=== PATIENT | female | born 1955 | race Caucasian/White ===

== ENCOUNTER → 2016-11-21 | Outpatient (CLI) | payer MEDICARE, MEDICAID ==
[~2016-11-21] MED LIST: ACET-2178 PO; ASPI-1035 PO; DULO60CA44 PO; GABA-290 PO; IPRA3AMP9 INH; QUET100T PO; RISP0.5T PO; ZOLP6.252 PO
== END | disposition home or self-care (01) ==
LOC: CT 10:32
DX: G31.9 Degenerative disease of nervous system, unspecified (principal)
CPT/HCPCS: 70486

== ENCOUNTER 2018-03-24 18:34 | Inpatient (IN) | payer MEDICARE, MEDICAID ==
[~2018-03-24] VITALS: Ht 162.6 cm; Wt 49.0 kg
[~2018-03-24 18:34] MED LIST changes: -ACET-2178 PO; +ACET250T3 PO; -ASPI-1035 PO; +ASPI-1159 PO; +DOCU100T PO; -DULO60CA44 PO; +DUONEB3 ML INH; +ESCI10TA PO; +FLUT1AER IH; -IPRA3AMP9 INH; +MELA3TAB10 PO; -RISP0.5T PO; +RISP05 PO
[2018-03-24] MEDS ORDERED: DILTIAZEM HCL 5MG/ML 5ML VIAL IV ONE (19:00)
[2018-03-24] MEDS ORDERED: DILTIAZEM HCL 90MG TABLET PO ONE (19:15)
[2018-03-24 19:30] LABS: BASOPHILS % 0.9 % (0.0-2.0); EOSINOPHILS % 0.5 % (0.0-5.0); HEMATOCRIT. 39.5 % (36.0-48.0); HEMOGLOBIN. 12.7 g/dL (12.0-16.0); MEAN CORPUSCULAR VOLUME 99.6 fL (81.0-99.0); MEAN PLATELET VOLUME 9.8 fl (7.4-10.4); MONOCYTES % 11.7 % (2.0-8.0); NEUTROPHILS % 61.9 % (40.0-76.0); PLATELET 265 x1000/uL (130-400); RED BLOOD CELL COUNT 3.96 mill/uL (4.2-5.4); RED CELL DISTRIBUTION WIDTH 17.8 % (11.6-14.6)
[2018-03-24 19:34] LABS: CHLORIDE 97 mEq/L (98-107)
[2018-03-24 19:40] LABS: PHOSPHORUS 4.2 mg/dL (2.5-4.9)
[2018-03-24] MEDS ORDERED: IOHEXOL-300 100 ML BOTTLE ONE (23:30)
[2018-03-25] VITALS (10 sets, daily range): BP systolic 97–135; BP diastolic 57–91
[2018-03-25] MEDS ORDERED: DIGOXIN 500MCG/2ML AMP IV ONE (09:00)
[2018-03-25] MEDS: ENOXAPARIN 40MG/0.4ML SYR SUBCUT SCH ×2 (09:00→10:00)
[2018-03-25] MEDS: HYDROCODONE/ACETAMINOPHEN 5/325MG TABLET PO PRN ×3 (09:11→19:45)
[2018-03-25 09:39] LABS: T4 FREE 1.32 ng/dL (0.76-1.46)
[2018-03-25] MEDS: ASPIRIN 81MG TABLET PO SCH (11:05)
[2018-03-25] MEDS: ENOXAPARIN 60MG/0.6ML SYR SUBCUT SCH (12:32)
[2018-03-25] MEDS ORDERED: FUROSEMIDE 40MG/4ML VIAL IVP NR (15:45)
[2018-03-25 18:49] LABS: CREATINE KINASE MB FRACTION 8.8 ng/mL (0.5-3.6)
[2018-03-26] VITALS (10 sets, daily range): BP systolic 110–122; BP diastolic 41–82
[2018-03-26] MEDS: ENOXAPARIN 60MG/0.6ML SYR SUBCUT SCH ×3 (01:00→21:09)
[2018-03-26] MEDS: HYDROCODONE/ACETAMINOPHEN 5/325MG TABLET PO PRN ×2 (01:00→09:08)
[2018-03-26 05:08] LABS: CREATINE KINASE MB FRACTION 8.8 ng/mL (0.5-3.6)
[2018-03-26 07:02] LABS: INR 1.9; PROTHROMBIN TIME 18.6 sec (9.1-11.1)
[2018-03-26 07:03] LABS: BASOPHILS % 0.7 % (0.0-2.0); EOSINOPHILS % 3.3 % (0.0-5.0); HEMATOCRIT. 35.4 % (36.0-48.0); HEMOGLOBIN. 11.3 g/dL (12.0-16.0); MEAN CORPUSCULAR HEMOGLOBIN 31.6 pg (28.0-32.0); MEAN CORPUSCULAR VOLUME 98.7 fL (81.0-99.0); MONOCYTES % 8.6 % (2.0-8.0); NEUTROPHILS % 57.4 % (40.0-76.0); PLATELET 192 x1000/uL (130-400); RED BLOOD CELL COUNT 3.59 mill/uL (4.2-5.4)
[2018-03-26 07:15] LABS: CHLORIDE 94 mEq/L (98-107)
[2018-03-26 07:26] LABS: CREATINE KINASE 145 IU/L (26-192)
[2018-03-26 07:29] LABS: CREATINE KINASE MB FRACTION 7.5 ng/mL (0.5-3.6)
[2018-03-26] MEDS: ASPIRIN 81MG TABLET PO SCH (09:08)
[2018-03-27] VITALS (18 sets, daily range): BP systolic 94–150; BP diastolic 29–97
[2018-03-27 06:54] LABS: INR 1.5; PROTHROMBIN TIME 14.8 sec (9.1-11.1)
[2018-03-27 07:00] LABS: BASOPHILS % 1.2 % (0.0-2.0); EOSINOPHILS % 4.5 % (0.0-5.0); HEMATOCRIT. 36.1 % (36.0-48.0); HEMOGLOBIN. 11.9 g/dL (12.0-16.0); LYMPHOCYTES % 22.8 % (20.0-50.0); MEAN CORPUSCULAR HEMOGLOBIN 32.5 pg (28.0-32.0); MEAN CORPUSCULAR VOLUME 98.3 fL (81.0-99.0); MEAN PLATELET VOLUME 8.4 fl (7.4-10.4); MONOCYTES % 10.4 % (2.0-8.0); NEUTROPHILS % 61.1 % (40.0-76.0); PLATELET 181 x1000/uL (130-400); RED BLOOD CELL COUNT 3.67 mill/uL (4.2-5.4); RED CELL DISTRIBUTION WIDTH 16.8 % (11.6-14.6)
[2018-03-27 07:17] LABS: CHLORIDE 100 mEq/L (98-107)
[2018-03-27] MEDS: ASPIRIN 81MG TABLET PO SCH ×3 (09:00→11:32)
[2018-03-27] MEDS ORDERED: DIGOXIN 500MCG/2ML AMP IV NR (09:00)
[2018-03-27] MEDS: ENOXAPARIN 60MG/0.6ML SYR SUBCUT SCH (09:12)
[2018-03-27] MEDS ORDERED: LORAZEPAM 2MG/ML CPJ IM PRN (09:15)
[2018-03-27] MEDS: LORAZEPAM 2MG/ML CPJ IV PRN ×3 (09:20→22:34)
[2018-03-27] MEDS: HYDROCODONE/ACETAMINOPHEN 5/325MG TABLET PO PRN (11:31)
[2018-03-27] MEDS ORDERED: AMIODARONE HCL 900 MG in DEXT 5% WATER 482 ML IV SCH (12:00)
[2018-03-27] MEDS: RIVAROXABAN 15 MG TABLET PO SCH (16:04)
[2018-03-28] VITALS (20 sets, daily range): BP systolic 100–146; BP diastolic 55–85
[2018-03-28] MEDS: ASPIRIN 81MG TABLET PO SCH (08:45)
[2018-03-28] MEDS: RIVAROXABAN 15 MG TABLET PO SCH ×2 (08:45→17:41)
[2018-03-28] MEDS: LORAZEPAM 2MG/ML CPJ IV PRN (10:57)
[2018-03-28] MEDS: QUETIAPINE FUMARATE 25MG TABLET PO SCH ×2 (17:42→20:26)
[2018-03-28] MEDS: AMIODARONE HCL 200 MG TABLET PO SCH (18:32)
[2018-03-29 04:00] VITALS: BP 102/81
[2018-03-29 08:00] VITALS: BP 91/67
[2018-03-29] MEDS: ASPIRIN 81MG TABLET PO SCH (09:16)
[2018-03-29] MEDS: QUETIAPINE FUMARATE 25MG TABLET PO SCH ×2 (09:16→21:06)
[2018-03-29] MEDS: AMIODARONE HCL 200 MG TABLET PO SCH (09:16)
[2018-03-29] MEDS: RIVAROXABAN 15 MG TABLET PO SCH ×2 (09:16→18:10)
[2018-03-29 12:00] VITALS: BP 96/68
[2018-03-29 12:13] LABS: HEMOGLOBIN 11.6 g/dL (12.0-16.0); MEAN CORPUSCULAR HEMOGLOBIN 31.6 pg (28.0-32.0); MEAN CORPUSCULAR VOLUME 98.4 fL (81.0-99.0); PLATELET 149 x1000/uL (130-400); RED BLOOD CELL COUNT 3.66 mill/uL (4.2-5.4)
[2018-03-29 12:59] LABS: CHLORIDE 105 mEq/L (98-107)
[2018-03-29 16:00] VITALS: BP 106/76
[2018-03-29 17:48] LABS: AMMONIA 34 uMol/L (<32)
[2018-03-29] MEDS ORDERED: DEXT 5%/0.45% NACL 500ML 500 ML IV ONE (19:00)
[2018-03-29 20:00] VITALS: BP 124/82
[2018-03-30] VITALS (7 sets, daily range): BP systolic 109–126; BP diastolic 76–98
[2018-03-30] MEDS: ASPIRIN 81MG TABLET PO SCH (08:32)
[2018-03-30] MEDS: AMIODARONE HCL 200 MG TABLET PO SCH (08:32)
[2018-03-30] MEDS: QUETIAPINE FUMARATE 25MG TABLET PO SCH ×2 (08:32→20:45)
[2018-03-30] MEDS: RIVAROXABAN 15 MG TABLET PO SCH ×2 (08:32→17:49)
[2018-03-30] MEDS ORDERED: DILTIAZEM HCL 90MG CAPSULE SR 12HR PO SCH (15:30)
[2018-03-30] MEDS ORDERED: DILTIAZEM HCL 120MG CAPSULE CD 24HR PO SCH (15:45)
[2018-03-30] MEDS: DILTIAZEM HCL 60MG TABLET PO SCH ×2 (15:58→20:45)
[2018-03-31] VITALS: BP 123/70
[2018-03-31 04:00] VITALS: BP 111/81
[2018-03-31] MEDS: DILTIAZEM HCL 60MG TABLET PO SCH ×2 (05:42)
[2018-03-31 08:00] VITALS: BP 110/86
[2018-03-31] MEDS: ASPIRIN 81MG TABLET PO SCH (09:12)
[2018-03-31] MEDS: QUETIAPINE FUMARATE 25MG TABLET PO SCH ×2 (09:12→20:56)
[2018-03-31] MEDS: AMIODARONE HCL 200 MG TABLET PO SCH (09:12)
[2018-03-31] MEDS: RIVAROXABAN 15 MG TABLET PO SCH ×2 (09:12→17:29)
[2018-03-31] MEDS: LORAZEPAM 2MG/ML CPJ IV PRN (10:25)
[2018-03-31] MEDS ORDERED: DILTIAZEM HCL 300MG CAPSULE SR 24HR PO SCH (11:00)
[2018-03-31 12:00] VITALS: BP 115/80
[2018-03-31] MEDS ORDERED: DILTIAZEM HCL 60MG TABLET PO SCH (12:15)
[2018-03-31] MEDS: DILTIAZEM HCL 90MG TABLET PO SCH ×2 (12:50→17:30)
[2018-03-31] MEDS: LEVOFLOXACIN 500MG PREMIX 100 ML IV SCH (14:10)
[2018-03-31 16:00] VITALS: BP 109/56
[2018-03-31 20:00] VITALS: BP 130/88
[2018-03-31] MEDS ORDERED: MAGNESIUM 1 G PREMIX 100 ML IV NR (21:00)
[2018-04-01] VITALS: BP 124/86
[2018-04-01] MEDS: DILTIAZEM HCL 90MG TABLET PO SCH ×4 (00:27→17:44)
[2018-04-01 04:00] VITALS: BP 116/82
[2018-04-01 08:11] VITALS: BP 102/67
[2018-04-01] MEDS: QUETIAPINE FUMARATE 25MG TABLET PO SCH (09:00)
[2018-04-01] MEDS: AMIODARONE HCL 200 MG TABLET PO SCH (09:00)
[2018-04-01] MEDS: RIVAROXABAN 15 MG TABLET PO SCH ×2 (09:00→17:44)
[2018-04-01] MEDS ORDERED: IPRATROPIUM/ALBUTEROL 0.5-3(2.5)MG/3ML NEB HHN PRN (10:45)
[2018-04-01] MEDS ORDERED: FUROSEMIDE 40MG/4ML VIAL IVP NR (10:45)
[2018-04-01] MEDS: LEVOFLOXACIN 500MG PREMIX 100 ML IV SCH (10:47)
[2018-04-01] MEDS: IPRATROPIUM/ALBUTEROL 0.5-3(2.5)MG/3ML NEB HHN SCH ×2 (11:05→21:34)
[2018-04-01] MEDS ORDERED: ACETAMINOPHEN 325MG TABLET PO PRN (11:15)
[2018-04-01] MEDS ORDERED: HYDROCODONE/ACETAMINOPHEN 5/325MG TABLET PO PRN (11:15)
[2018-04-01 11:56] VITALS: BP 133/94
[2018-04-01] MEDS ORDERED: IPRATROPIUM/ALBUTEROL 0.5-3(2.5)MG/3ML NEB HHN SCH (12:00)
[2018-04-01 15:55] VITALS: BP 112/88
[2018-04-01] MEDS ORDERED: LEVO500T2 PO (17:00)
[2018-04-01 20:00] VITALS: BP 127/81
== END 2018-04-01 22:25 | DRG 175 ==
LOC: ER 18:34 → 3WST 20:58 → EDBEDREQ 21:04 → EDBEDREQTM 21:04 → EDBEDREQSVC 21:04 → ENRESERV 22:03 → 3WST 03-25 00:08 → 7WST 03-28 23:25
PROVIDERS: ADMIT Internal Medicine; ATTEND Internal Medicine
DX: I26.99 Other pulmonary embolism without acute cor pulmonale (principal); J96.00 Acute respiratory failure, unspecified whether with hypoxia or hypercapnia; I50.23 Acute on chronic systolic (congestive) heart failure; D68.59 Other primary thrombophilia; I11.0 Hypertensive heart disease with heart failure; J44.9 Chronic obstructive pulmonary disease, unspecified; F32.9 Major depressive disorder, single episode, unspecified; F20.9 Schizophrenia, unspecified; E11.51 Type 2 diabetes mellitus with diabetic peripheral angiopathy without gangrene; I36.1 Nonrheumatic tricuspid (valve) insufficiency; R74.0 Nonspecific elevation of levels of transaminase and lactic acid dehydrogenase [LDH]; R79.89 Other specified abnormal findings of blood chemistry; I48.0 Paroxysmal atrial fibrillation; Z79.82 Long term (current) use of aspirin; Z79.899 Other long term (current) drug therapy; Z88.0 Allergy status to penicillin
CPT/HCPCS: 36415; 71045; 74018; 74177; 80048; 80053; 80061; 82140; 82247; 82550; 82553; 83036; 83605; 83690; 83735; 83880; 84075; 84100; 84439; 84443; 84450; 84460; 84484; 85025; 85027; 85379; 85610; 92610; 93005; 93306; 93923; 93970; 94640; 96374; 99285; A6261; C1893; J0282; J1160; J1650; J1940; J1956; J2060; J3475; J3490; J7040; J7060; J7620; Q9967

== ENCOUNTER 2018-04-04 18:44 | Inpatient (IN) | payer MEDICARE, MEDICAID ==
[~2018-04-04] VITALS: Ht 162.6 cm; Wt 69.4 kg
[~2018-04-04 18:44] MED LIST changes: +ETOMIDATE 2MG/ML 10ML VIAL IV ONE; +LEVO500T2 PO; +VECURONIUM BROMIDE 10 MG/VIAL IV ONE
[2018-04-04] MEDS ORDERED: SODIUM CHLORIDE 0.9% 1000ML BAG (SEPSIS BOLUS) IV ONE (19:00)
[2018-04-04] MEDS ORDERED: VERAPAMIL HCL 2.5 MG/1 ML 2ML VIAL IV ONE (19:15)
[2018-04-04] MEDS ORDERED: VECURONIUM BROMIDE 10 MG/VIAL IV ONE (19:15)
[2018-04-04] MEDS ORDERED: LEVOFLOXACIN 500MG PREMIX 100 ML IV ONE (19:15)
[2018-04-04] MEDS ORDERED: ETOMIDATE 2MG/ML 10ML VIAL IV ONE (19:15)
[2018-04-04] MEDS ORDERED: MIDAZOLAM HCL 50 MG in DEXTROSE 5% WATER 40 ML IV ONE (19:15)
[2018-04-04] MEDS ORDERED: MIDAZOLAM HCL 50 MG in DEXTROSE 5% WATER 40 ML IV NR (19:45)
[2018-04-04 20:21] LABS: BASOPHILS % 0.8 % (0.0-2.0); EOSINOPHILS % 2.5 % (0.0-5.0); HEMOGLOBIN. 11.4 g/dL (12.0-16.0); LYMPHOCYTES % 16.3 % (20.0-50.0); MEAN CORPUSCULAR HEMOGLOBIN 31.7 pg (28.0-32.0); MEAN CORPUSCULAR VOLUME 102.7 fL (81.0-99.0); MONOCYTES % 6.1 % (2.0-8.0); NEUTROPHILS % 74.3 % (40.0-76.0); PLATELET 152 x1000/uL (130-400); RED CELL DISTRIBUTION WIDTH 17.2 % (11.6-14.6)
[2018-04-04 20:21] LABS: CLARITY URINE CLOUDY (CLEAR); COLOR URINE DARK YELLOW (YELLOW); KETONES URINE TRACE (NEGATIVE); LEUKOCYTE ESTERASE URINE 1+ (NEGATIVE); NITRITE URINE NEGATIVE (NEGATIVE); OCCULT BLOOD URINE NEGATIVE (NEGATIVE); PH URINE 6.5 (4.5-8.0); PROTEIN URINE 1+ (NEGATIVE); SPECIFIC GRAVITY URINE 1.021 (1.005-1.030)
[2018-04-04 20:30] LABS: CHLORIDE 106 mEq/L (98-107)
[2018-04-04 20:33] LABS: INR 1.3; PARTIAL THROMBOPLASTIN TIME 24.3 sec (23.4-31.0); PROTHROMBIN TIME 12.7 sec (9.1-11.1)
[2018-04-04] MEDS ORDERED: CLINDAMYCIN 600 MG in DEXTROSE 5% WATER 50 ML IV ONE (20:45)
[2018-04-04 21:00] VITALS: BP 113/69
[2018-04-04 21:05] LABS: BG CARBOXYHEMOGLOBIN 0.8 % (0.5-1.5); BG FRACTION INSPIRED OXYGEN 100; BG HCO3 ACT 27.1 mmol/L (22.0-26.0); BG METHEMOGLOBIN 0.3 % (0.0-1.5); BG OXYHEMOGLOBIN 98.9 % (94.0-97.0); BG PCO2 55.3 mmHg (35.0-45.0); BG PH 7.308 (7.350-7.450); BG PO2 401.5 mmHg (75.0-100.0); BG SAMPLE SITE RIGHT BRACHIAL; BG TIDAL VOLUME(mL) 400 mL; BG TOTAL HEMOGLOBIN 12.4 g/dL (12.0-18.0); BG VENT MODE VENT - A/C; BG VENT RATE 14 set
[2018-04-04 22:48] VITALS: BP 113/75
[2018-04-04 23:55] VITALS: BP 71/25
[2018-04-04 23:56] VITALS: BP 99/71
[2018-04-05] VITALS (77 sets, daily range): BP systolic 71–148; BP diastolic 25–104
[2018-04-05] MEDS ORDERED: VASOPRESSIN 10 UNIT in SODIUM CHLORIDE 0.9% 99.5 ML IV PRN ×2
[2018-04-05] MEDS ORDERED: CLINDAMYCIN 900 MG in DEXTROSE 5% WATER 50 ML IV SCH (02:00)
[2018-04-05] MEDS ORDERED: SODIUM CHLORIDE 10% FOR INH 15ML VIAL NEB INH SCH (02:00)
[2018-04-05] MEDS ORDERED: NOREPINEPHRINE 4 MG in DEXT 5% WATER 246 ML IV PRN (04:00)
[2018-04-05] MEDS ORDERED: DEXT 5%/0.45% NACL KCL 20MEQ/L 1,000 ML IV SCH ×2 (05:30→06:00)
[2018-04-05] MEDS ORDERED: NOREPINEPHRINE 8 MG in DEXT 5% WATER 242 ML IV PRN (08:00)
[2018-04-05] MEDS ORDERED: IPRATROPIUM/ALBUTEROL 0.5-3(2.5)MG/3ML NEB HHN PRN (09:00)
[2018-04-05 09:43] LABS: BASOPHILS % 0.7 % (0.0-2.0); EOSINOPHILS % 0.8 % (0.0-5.0); HEMATOCRIT. 37.9 % (36.0-48.0); HEMOGLOBIN. 11.9 g/dL (12.0-16.0); LYMPHOCYTES % 10.8 % (20.0-50.0); MEAN CORPUSCULAR HEMOGLOBIN 31.2 pg (28.0-32.0); MEAN CORPUSCULAR VOLUME 99.5 fL (81.0-99.0); MEAN PLATELET VOLUME 8.9 fl (7.4-10.4); MONOCYTES % 7.4 % (2.0-8.0); NEUTROPHILS % 80.3 % (40.0-76.0); PLATELET 183 x1000/uL (130-400); RED BLOOD CELL COUNT 3.81 mill/uL (4.2-5.4); RED CELL DISTRIBUTION WIDTH 16.4 % (11.6-14.6)
[2018-04-05 09:56] LABS: CHLORIDE 111 mEq/L (98-107)
[2018-04-05] MEDS ORDERED: DIGOXIN 500MCG/2ML AMP IV NR (10:00)
[2018-04-05] MEDS ORDERED: HEPARIN 100 UNITS/1 ML VIAL IVF PRN (11:00)
[2018-04-05] MEDS: FUROSEMIDE 40MG/4ML VIAL IVP SCH ×2 (11:31→18:31)
[2018-04-05] MEDS: PANTOPRAZOLE SODIUM 40 MG/VIAL IV SCH (11:31)
[2018-04-05] MEDS: ENOXAPARIN 60MG/0.6ML SYR SUBCUT SCH ×2 (11:32→22:34)
[2018-04-05] MEDS ORDERED: IPRATROPIUM/ALBUTEROL 0.5-3(2.5)MG/3ML NEB HHN SCH (12:00)
[2018-04-05] MEDS ORDERED: PHENYLEPHRINE 20 MG in DEXT 5% WATER 248 ML IV PRN (13:00)
[2018-04-05] MEDS ORDERED: MAGNESIUM 4 G PREMIX 100 ML IV NR (13:30)
[2018-04-05] MEDS: IPRATROPIUM BROMIDE (0.02%) 0.5MG/2.5ML NEB HHN SCH ×2 (13:37→20:43)
[2018-04-05] MEDS: METRONIDAZOLE 500 MG PREMIX 100 ML IV SCH ×2 (13:41→22:35)
[2018-04-05 13:48] LABS: BG BASE EXCESS 4.6 mmol/L (-2.0-2.0); BG CARBOXYHEMOGLOBIN 1.1 % (0.5-1.5); BG DEOXYHEMOGLOBIN 3.3 % (0.0-5.0); BG FRACTION INSPIRED OXYGEN 45; BG HCO3 ACT 28.9 mmol/L (22.0-26.0); BG METHEMOGLOBIN 0.4 % (0.0-1.5); BG OXYGEN SATURATION 96.6 % (92.0-98.5); BG OXYHEMOGLOBIN 95.2 % (94.0-97.0); BG PCO2 41.5 mmHg (35.0-45.0); BG PO2 81.2 mmHg (75.0-100.0); BG SAMPLE SITE LEFT RADIAL; BG TIDAL VOLUME(mL) 450 mL; BG VENT MODE VENT - A/C; BG VENT RATE 14 set
[2018-04-05] MEDS: MIDAZOLAM HCL 50 MG in DEXTROSE 5% WATER 40 ML IV PRN (18:33)
[2018-04-05] MEDS: BUDESONIDE 0.5MG/2ML NEB HHN SCH (20:43)
[2018-04-05] MEDS: LEVOFLOXACIN 500MG PREMIX 100 ML IV SCH (22:34)
[2018-04-06] VITALS (40 sets, daily range): BP systolic 93–123; BP diastolic 52–92
[2018-04-06] MEDS: IPRATROPIUM BROMIDE (0.02%) 0.5MG/2.5ML NEB HHN SCH ×5 (01:54→20:05)
[2018-04-06 05:40] LABS: BASOPHILS % 0.9 % (0.0-2.0); EOSINOPHILS % 0.7 % (0.0-5.0); HEMATOCRIT. 33.9 % (36.0-48.0); LYMPHOCYTES % 18.2 % (20.0-50.0); MEAN CORPUSCULAR HEMOGLOBIN 31.4 pg (28.0-32.0); MEAN CORPUSCULAR VOLUME 96.6 fL (81.0-99.0); MEAN PLATELET VOLUME 8.2 fl (7.4-10.4); MONOCYTES % 6.3 % (2.0-8.0); NEUTROPHILS % 73.9 % (40.0-76.0); PLATELET 164 x1000/uL (130-400); RED BLOOD CELL COUNT 3.51 mill/uL (4.2-5.4); RED CELL DISTRIBUTION WIDTH 15.8 % (11.6-14.6)
[2018-04-06] MEDS: METRONIDAZOLE 500 MG PREMIX 100 ML IV SCH ×3 (06:06→23:37)
[2018-04-06 06:26] LABS: CHLORIDE 104 mEq/L (98-107)
[2018-04-06 06:32] LABS: PHOSPHORUS 1.1 mg/dL (2.5-4.9)
[2018-04-06] MEDS: MIDAZOLAM HCL 50 MG in DEXTROSE 5% WATER 40 ML IV PRN ×2 (07:30→09:26)
[2018-04-06] MEDS: BUDESONIDE 0.5MG/2ML NEB HHN SCH ×2 (08:41→20:05)
[2018-04-06] MEDS: FUROSEMIDE 40MG/4ML VIAL IVP SCH ×2 (09:24→18:40)
[2018-04-06] MEDS: PANTOPRAZOLE SODIUM 40 MG/VIAL IV SCH (09:24)
[2018-04-06] MEDS: ENOXAPARIN 60MG/0.6ML SYR SUBCUT SCH ×2 (09:25→22:19)
[2018-04-06 11:21] LABS: BG BASE EXCESS 7.5 mmol/L (-2.0-2.0); BG CARBOXYHEMOGLOBIN 1.2 % (0.5-1.5); BG DEOXYHEMOGLOBIN 2.2 % (0.0-5.0); BG FRACTION INSPIRED OXYGEN 45; BG HCO3 ACT 30.5 mmol/L (22.0-26.0); BG METHEMOGLOBIN 0.2 % (0.0-1.5); BG OXYGEN SATURATION 97.8 % (92.0-98.5); BG OXYHEMOGLOBIN 96.4 % (94.0-97.0); BG PCO2 37.3 mmHg (35.0-45.0); BG PH 7.531 (7.350-7.450); BG PO2 93.6 mmHg (75.0-100.0); BG SAMPLE SITE RIGHT FEMORAL; BG TIDAL VOLUME(mL) 450 mL; BG TOTAL HEMOGLOBIN 12.6 g/dL (12.0-18.0); BG VENT MODE VENT - A/C; BG VENT RATE 14 set
[2018-04-06] MEDS ORDERED: POTASSIUM PHOS,M-BASIC-D-BASIC 30 MMOL in DEXT 5% WATER 500 ML IV NR (11:30)
[2018-04-06] MEDS: MORPHINE SULFATE 4 MG/ML CPJ (NOT FOR IM USE) IV PRN (15:08)
[2018-04-06] MEDS: LEVOFLOXACIN 500MG PREMIX 100 ML IV SCH (22:20)
[2018-04-07] VITALS (43 sets, daily range): BP systolic 85–125; BP diastolic 54–81
[2018-04-07] MEDS: MORPHINE SULFATE 4 MG/ML CPJ (NOT FOR IM USE) IV PRN (00:23)
[2018-04-07] MEDS: IPRATROPIUM BROMIDE (0.02%) 0.5MG/2.5ML NEB HHN SCH ×3 (01:35→20:11)
[2018-04-07 05:39] LABS: BASOPHILS % 0.4 % (0.0-2.0); EOSINOPHILS % 1.2 % (0.0-5.0); HEMATOCRIT. 34.8 % (36.0-48.0); HEMOGLOBIN. 11.3 g/dL (12.0-16.0); LYMPHOCYTES % 16.8 % (20.0-50.0); MEAN CORPUSCULAR HEMOGLOBIN 31.3 pg (28.0-32.0); MEAN CORPUSCULAR VOLUME 96.4 fL (81.0-99.0); MEAN PLATELET VOLUME 8.7 fl (7.4-10.4); MONOCYTES % 6.2 % (2.0-8.0); NEUTROPHILS % 75.4 % (40.0-76.0); PLATELET 157 x1000/uL (130-400); RED BLOOD CELL COUNT 3.61 mill/uL (4.2-5.4); RED CELL DISTRIBUTION WIDTH 15.5 % (11.6-14.6)
[2018-04-07 06:00] LABS: CHLORIDE 99 mEq/L (98-107)
[2018-04-07] MEDS: METRONIDAZOLE 500 MG PREMIX 100 ML IV SCH ×3 (06:53→21:34)
[2018-04-07 07:49] LABS: PHOSPHORUS 1.5 mg/dL (2.5-4.9)
[2018-04-07] MEDS: BUDESONIDE 0.5MG/2ML NEB HHN SCH ×2 (08:44→20:10)
[2018-04-07] MEDS ORDERED: POTASSIUM CHLORIDE INJ 40 MEQ in DEXT 5% WATER 250 ML IV NR (09:00)
[2018-04-07] MEDS: PANTOPRAZOLE SODIUM 40 MG/VIAL IV SCH (09:05)
[2018-04-07] MEDS: ENOXAPARIN 60MG/0.6ML SYR SUBCUT SCH ×2 (09:06→21:35)
[2018-04-07] MEDS ORDERED: MAGNESIUM 2 G PREMIX 50 ML IV ONE (09:30)
[2018-04-07] MEDS: FUROSEMIDE 40MG/4ML VIAL IVP SCH ×2 (10:50→18:41)
[2018-04-07] MEDS ORDERED: POTASSIUM PHOS,M-BASIC-D-BASIC 20 MMOL in DEXT 5% WATER 243.3333 ML IV SCH (11:00)
[2018-04-07] MEDS ORDERED: MAGNESIUM SULFATE 2 GM in DEXTROSE 5% WATER 46 ML IV SCH (11:00)
[2018-04-07] MEDS: MIDAZOLAM HCL 50 MG in DEXTROSE 5% WATER 40 ML IV PRN (18:42)
[2018-04-07] MEDS: LEVOFLOXACIN 500MG PREMIX 100 ML IV SCH (21:34)
[2018-04-08] VITALS (38 sets, daily range): BP systolic 77–121; BP diastolic 44–78
[2018-04-08] MEDS: IPRATROPIUM BROMIDE (0.02%) 0.5MG/2.5ML NEB HHN SCH ×4 (01:40→20:22)
[2018-04-08] MEDS: METRONIDAZOLE 500 MG PREMIX 100 ML IV SCH (05:31)
[2018-04-08 06:01] LABS: BASOPHILS % 1.1 % (0.0-2.0); EOSINOPHILS % 2.2 % (0.0-5.0); HEMATOCRIT. 35.2 % (36.0-48.0); HEMOGLOBIN. 11.3 g/dL (12.0-16.0); LYMPHOCYTES % 23.2 % (20.0-50.0); MEAN CORPUSCULAR HEMOGLOBIN 30.9 pg (28.0-32.0); MEAN CORPUSCULAR VOLUME 96.3 fL (81.0-99.0); MEAN PLATELET VOLUME 8.6 fl (7.4-10.4); NEUTROPHILS % 63.5 % (40.0-76.0); PLATELET 165 x1000/uL (130-400); RED BLOOD CELL COUNT 3.66 mill/uL (4.2-5.4); RED CELL DISTRIBUTION WIDTH 15.9 % (11.6-14.6)
[2018-04-08 06:48] LABS: CHLORIDE 99 mEq/L (98-107)
[2018-04-08 07:01] LABS: PHOSPHORUS 1.8 mg/dL (2.5-4.9)
[2018-04-08] MEDS: BUDESONIDE 0.5MG/2ML NEB HHN SCH ×2 (08:53→20:23)
[2018-04-08] MEDS: PANTOPRAZOLE SODIUM 40 MG/VIAL IV SCH (09:41)
[2018-04-08] MEDS: FUROSEMIDE 40MG/4ML VIAL IVP SCH ×2 (09:41→16:56)
[2018-04-08] MEDS: ENOXAPARIN 60MG/0.6ML SYR SUBCUT SCH ×2 (09:42→21:15)
[2018-04-08] MEDS ORDERED: POTASSIUM CHLORIDE INJ 40 MEQ in DEXT 5% WATER 250 ML IV SCH (10:00)
[2018-04-08] MEDS ORDERED: POTASSIUM PHOS,M-BASIC-D-BASIC 10 MMOL in DEXT 5% WATER 246.6667 ML IV SCH (11:00)
[2018-04-08] MEDS: VANCOMYCIN 1 G PREMIX 200 ML IV SCH (11:35)
[2018-04-08] MEDS: MIDAZOLAM HCL 50 MG in DEXTROSE 5% WATER 40 ML IV PRN (12:55)
[2018-04-08 13:58] LABS: BG BASE EXCESS 9.8 mmol/L (-2.0-2.0); BG CARBOXYHEMOGLOBIN 0.4 % (0.5-1.5); BG DEOXYHEMOGLOBIN 2.3 % (0.0-5.0); BG FRACTION INSPIRED OXYGEN 40; BG HCO3 ACT 33.2 mmol/L (22.0-26.0); BG METHEMOGLOBIN 0.3 % (0.0-1.5); BG OXYGEN SATURATION 97.7 % (92.0-98.5); BG PCO2 40.2 mmHg (35.0-45.0); BG PH 7.535 (7.350-7.450); BG PO2 97.3 mmHg (75.0-100.0); BG SAMPLE SITE RIGHT BRACHIAL; BG TIDAL VOLUME(mL) 450 mL; BG TOTAL HEMOGLOBIN 12.6 g/dL (12.0-18.0); BG VENT MODE VENT - A/C; BG VENT RATE 14 set
[2018-04-08] MEDS ORDERED: MIDAZOLAM HCL 100 MG in DEXT 5% WATER 80 ML IV PRN (17:45)
[2018-04-08] MEDS ORDERED: BUDESONIDE 0.5MG/2ML NEB ONE (20:28)
[2018-04-09] VITALS (38 sets, daily range): BP systolic 80–120; BP diastolic 36–84
[2018-04-09] MEDS: VANCOMYCIN 1 G PREMIX 200 ML IV SCH ×3 (01:15→23:38)
[2018-04-09] MEDS: IPRATROPIUM BROMIDE (0.02%) 0.5MG/2.5ML NEB HHN SCH ×4 (02:23→20:31)
[2018-04-09 06:00] LABS: BASOPHILS % 1.3 % (0.0-2.0); EOSINOPHILS % 3.7 % (0.0-5.0); HEMOGLOBIN. 11.7 g/dL (12.0-16.0); LYMPHOCYTES % 26.8 % (20.0-50.0); MEAN CORPUSCULAR HEMOGLOBIN 31.2 pg (28.0-32.0); MEAN CORPUSCULAR VOLUME 95.8 fL (81.0-99.0); MEAN PLATELET VOLUME 9.1 fl (7.4-10.4); MONOCYTES % 9.6 % (2.0-8.0); NEUTROPHILS % 58.6 % (40.0-76.0); PLATELET 180 x1000/uL (130-400); RED BLOOD CELL COUNT 3.75 mill/uL (4.2-5.4); RED CELL DISTRIBUTION WIDTH 15.8 % (11.6-14.6)
[2018-04-09 06:06] LABS: CHLORIDE 97 mEq/L (98-107)
[2018-04-09 06:10] LABS: PHOSPHORUS 1.8 mg/dL (2.5-4.9)
[2018-04-09] MEDS ORDERED: POTASSIUM CHLORIDE 20MEQ/PACKET NG NR (08:23)
[2018-04-09] MEDS ORDERED: POTASSIUM CHLORIDE INJ 40 MEQ in DEXT 5% WATER 250 ML IV ONE (08:30)
[2018-04-09] MEDS ORDERED: POTASSIUM PHOS,M-BASIC-D-BASIC 20 MMOL in DEXT 5% WATER 243.3333 ML IV ONE (09:15)
[2018-04-09] MEDS ORDERED: POTASSIUM PHOS,M-BASIC-D-BASIC 20 MMOL in DEXT 5% WATER 243.3333 ML IV NR (09:30)
[2018-04-09] MEDS ORDERED: POTASSIUM CHLORIDE INJ 40 MEQ in DEXT 5% WATER 250 ML IV SCH (09:30)
[2018-04-09] MEDS: FUROSEMIDE 40MG/4ML VIAL IVP SCH ×2 (09:37→17:00)
[2018-04-09] MEDS: PANTOPRAZOLE SODIUM 40 MG/VIAL IV SCH (09:37)
[2018-04-09] MEDS: ENOXAPARIN 60MG/0.6ML SYR SUBCUT SCH ×2 (09:38→20:16)
[2018-04-09 13:35] LABS: BG BASE EXCESS 8.1 mmol/L (-2.0-2.0); BG CARBOXYHEMOGLOBIN 0.8 % (0.5-1.5); BG CPAP (cmH2O) 0 cm(H2O); BG DEOXYHEMOGLOBIN 1.8 % (0.0-5.0); BG HCO3 ACT 32.8 mmol/L (22.0-26.0); BG METHEMOGLOBIN 0.2 % (0.0-1.5); BG OXYGEN SATURATION 98.2 % (92.0-98.5); BG OXYHEMOGLOBIN 97.2 % (94.0-97.0); BG PCO2 45.5 mmHg (35.0-45.0); BG PH 7.476 (7.350-7.450); BG PO2 112.6 mmHg (75.0-100.0); BG SAMPLE SITE RIGHT BRACHIAL; BG TOTAL HEMOGLOBIN 14.7 g/dL (12.0-18.0); BG VENT MODE VENT - CPAP
[2018-04-09] MEDS ORDERED: ENOXAPARIN 60MG/0.6ML SYR SUBCUT SCH (16:15)
[2018-04-09] MEDS ORDERED: DIGOXIN 500MCG/2ML AMP IV NR (19:45)
[2018-04-09] MEDS: DIGOXIN 500MCG/2ML AMP IV NR (20:16)
[2018-04-10] VITALS (53 sets, daily range): BP systolic 84–160; BP diastolic 22–119
[2018-04-10] MEDS: IPRATROPIUM BROMIDE (0.02%) 0.5MG/2.5ML NEB HHN SCH ×4 (01:54→17:30)
[2018-04-10 05:53] LABS: BASOPHILS % 1.1 % (0.0-2.0); HEMATOCRIT. 40.5 % (36.0-48.0); HEMOGLOBIN. 13.1 g/dL (12.0-16.0); MEAN CORPUSCULAR VOLUME 95.9 fL (81.0-99.0); MONOCYTES % 9.4 % (2.0-8.0); NEUTROPHILS % 65.5 % (40.0-76.0); PLATELET 217 x1000/uL (130-400); RED BLOOD CELL COUNT 4.23 mill/uL (4.2-5.4); RED CELL DISTRIBUTION WIDTH 15.8 % (11.6-14.6)
[2018-04-10 06:23] LABS: CHLORIDE 99 mEq/L (98-107)
[2018-04-10 06:27] LABS: PHOSPHORUS 4.1 mg/dL (2.5-4.9)
[2018-04-10] MEDS: VANCOMYCIN 1 G PREMIX 200 ML IV SCH (08:32)
[2018-04-10] MEDS: PANTOPRAZOLE SODIUM 40 MG/VIAL IV SCH (08:32)
[2018-04-10] MEDS: ENOXAPARIN 60MG/0.6ML SYR SUBCUT SCH ×2 (08:32→20:14)
[2018-04-10] MEDS: FUROSEMIDE 40MG/4ML VIAL IVP SCH ×2 (08:32→17:04)
[2018-04-10] MEDS ORDERED: POTASSIUM CHLORIDE 20MEQ/PACKET PO NR (10:30)
[2018-04-10] MEDS ORDERED: INFLUENZA VIRUS VACCINE(AFLURIA) 0.5ML SYR IM ONE (14:30)
[2018-04-10] MEDS ORDERED: PNEUMOCOCCAL 23-VAL P-SAC VAC 0.5 ML IM ONE (14:30)
[2018-04-10] MEDS: AMIODARONE HCL 900 MG in DEXT 5% WATER 482 ML IV PRN (16:54)
[2018-04-10] MEDS: MORPHINE SULFATE 4 MG/ML CPJ (NOT FOR IM USE) IV PRN (17:27)
[2018-04-10] MEDS: ACETYLCYSTEINE 100MG/ML 10% VIAL 4ML INH SCH (17:33)
[2018-04-10] MEDS ORDERED: DEXTROSE 50% WATER 50ML SYRINGE IV PRN (17:45)
[2018-04-10] MEDS: BLOOD SUGAR DIAGNOSTIC STRIP TEST SCH ×2 (17:45→23:03)
[2018-04-10] MEDS ORDERED: LORAZEPAM 2MG/ML CPJ IV PRN (18:00)
[2018-04-10] MEDS ORDERED: MORPHINE SULFATE 4 MG/ML CPJ (NOT FOR IM USE) IV PRN (18:15)
[2018-04-10] MEDS: INSULIN LISPRO 100 UNITS/ML SUBCUT SCH ×2 (19:40→23:10)
[2018-04-10] MEDS: DIGOXIN 500MCG/2ML AMP IV NR (20:00)
[2018-04-10] MEDS: VANCOMYCIN 750 MG PREMIX 150 ML IV SCH (20:14)
[2018-04-10] MEDS: ACETAMINOPHEN 650MG/20.3ML UDC NG PRN (20:51)
[2018-04-10 21:05] LABS: BG CARBOXYHEMOGLOBIN 0.4 % (0.5-1.5); BG DEOXYHEMOGLOBIN 0.1 % (0.0-5.0); BG FRACTION INSPIRED OXYGEN 100; BG HCO3 ACT 29.9 mmol/L (22.0-26.0); BG METHEMOGLOBIN 0.4 % (0.0-1.5); BG OXYGEN SATURATION 99.9 % (92.0-98.5); BG OXYHEMOGLOBIN 99.1 % (94.0-97.0); BG PCO2 40.7 mmHg (35.0-45.0); BG PH 7.484 (7.350-7.450); BG PO2 502.3 mmHg (75.0-100.0); BG SAMPLE SITE RIGHT FEMORAL; BG TIDAL VOLUME(mL) 400 mL; BG TOTAL HEMOGLOBIN 14.4 g/dL (12.0-18.0); BG VENT MODE VENT - A/C; BG VENT RATE 14 set
[2018-04-10] MEDS: METRONIDAZOLE 500 MG PREMIX 100 ML IV SCH (23:21)
[2018-04-10] MEDS: LEVOFLOXACIN 500MG PREMIX 100 ML IV SCH (23:21)
[2018-04-11] VITALS (95 sets, daily range): BP systolic 82–135; BP diastolic 49–98
[2018-04-11] MEDS: ACETYLCYSTEINE 100MG/ML 10% VIAL 4ML INH SCH ×3 (00:22→13:55)
[2018-04-11] MEDS: IPRATROPIUM BROMIDE (0.02%) 0.5MG/2.5ML NEB HHN SCH ×5 (00:22→20:11)
[2018-04-11] MEDS: ACETAMINOPHEN 650MG/20.3ML UDC NG PRN ×4 (04:53→23:19)
[2018-04-11] MEDS: BLOOD SUGAR DIAGNOSTIC STRIP TEST SCH ×4 (04:53→23:12)
[2018-04-11] MEDS: INSULIN LISPRO 100 UNITS/ML SUBCUT SCH ×4 (05:01→23:12)
[2018-04-11 05:28] LABS: BASOPHILS % 0.9 % (0.0-2.0); EOSINOPHILS % 0.3 % (0.0-5.0); HEMATOCRIT. 42.4 % (36.0-48.0); HEMOGLOBIN. 13.8 g/dL (12.0-16.0); LYMPHOCYTES % 23.7 % (20.0-50.0); MEAN CORPUSCULAR HEMOGLOBIN 31.6 pg (28.0-32.0); MEAN PLATELET VOLUME 8.8 fl (7.4-10.4); MONOCYTES % 12.2 % (2.0-8.0); NEUTROPHILS % 62.9 % (40.0-76.0); PLATELET 251 x1000/uL (130-400); RED BLOOD CELL COUNT 4.37 mill/uL (4.2-5.4); RED CELL DISTRIBUTION WIDTH 15.8 % (11.6-14.6)
[2018-04-11 07:45] LABS: BG BASE EXCESS 6.1 mmol/L (-2.0-2.0); BG CARBOXYHEMOGLOBIN 0.8 % (0.5-1.5); BG DEOXYHEMOGLOBIN 1.1 % (0.0-5.0); BG METHEMOGLOBIN 0.3 % (0.0-1.5); BG OXYGEN SATURATION 98.9 % (92.0-98.5); BG OXYHEMOGLOBIN 97.8 % (94.0-97.0); BG PCO2 32.2 mmHg (35.0-45.0); BG PH 7.557 (7.350-7.450); BG PO2 131.3 mmHg (75.0-100.0); BG SAMPLE SITE RIGHT BRACHIAL; BG TIDAL VOLUME(mL) 400 mL; BG VENT MODE VENT - A/C; BG VENT RATE 12 set
[2018-04-11] MEDS: FUROSEMIDE 40MG/4ML VIAL IVP SCH (08:39)
[2018-04-11] MEDS: METRONIDAZOLE 500 MG PREMIX 100 ML IV SCH ×3 (08:39→23:13)
[2018-04-11] MEDS: PANTOPRAZOLE SODIUM 40 MG/VIAL IV SCH (08:39)
[2018-04-11] MEDS: ENOXAPARIN 60MG/0.6ML SYR SUBCUT SCH ×2 (08:45→20:29)
[2018-04-11] MEDS: VANCOMYCIN 750 MG PREMIX 150 ML IV SCH ×2 (08:45→20:29)
[2018-04-11] MEDS ORDERED: DIGOXIN 500MCG/2ML AMP IV SCH (09:15)
[2018-04-11] MEDS: LORAZEPAM 2MG/ML CPJ IV PRN ×2 (10:15→14:26)
[2018-04-11] MEDS: AMIODARONE HCL 900 MG in DEXT 5% WATER 482 ML IV PRN (12:25)
[2018-04-11] MEDS: DIGOXIN 500MCG/2ML AMP IV NR (20:00)
[2018-04-11] MEDS: LEVOFLOXACIN 500MG PREMIX 100 ML IV SCH (20:29)
[2018-04-12] VITALS (96 sets, daily range): BP systolic 83–165; BP diastolic 36–89
[2018-04-12] MEDS: ACETYLCYSTEINE 100MG/ML 10% VIAL 4ML INH SCH ×3 (00:14→10:00)
[2018-04-12] MEDS: IPRATROPIUM BROMIDE (0.02%) 0.5MG/2.5ML NEB HHN SCH ×4 (02:06→20:11)
[2018-04-12 05:13] LABS: BASOPHILS % 0.6 % (0.0-2.0); EOSINOPHILS % 0.1 % (0.0-5.0); HEMATOCRIT. 38.1 % (36.0-48.0); HEMOGLOBIN. 12.2 g/dL (12.0-16.0); LYMPHOCYTES % 13.3 % (20.0-50.0); MEAN CORPUSCULAR HEMOGLOBIN 31.1 pg (28.0-32.0); MEAN CORPUSCULAR VOLUME 96.7 fL (81.0-99.0); MEAN PLATELET VOLUME 9.4 fl (7.4-10.4); MONOCYTES % 10.6 % (2.0-8.0); NEUTROPHILS % 75.4 % (40.0-76.0); PLATELET 251 x1000/uL (130-400); RED BLOOD CELL COUNT 3.94 mill/uL (4.2-5.4); RED CELL DISTRIBUTION WIDTH 15.9 % (11.6-14.6)
[2018-04-12 05:27] LABS: CHLORIDE 104 mEq/L (98-107)
[2018-04-12] MEDS: INSULIN LISPRO 100 UNITS/ML SUBCUT SCH ×4 (05:45→23:24)
[2018-04-12] MEDS: BLOOD SUGAR DIAGNOSTIC STRIP TEST SCH ×4 (06:07→23:24)
[2018-04-12] MEDS: METRONIDAZOLE 500 MG PREMIX 100 ML IV SCH ×3 (07:43→23:24)
[2018-04-12 08:15] LABS: BG BASE EXCESS 6.5 mmol/L (-2.0-2.0); BG CARBOXYHEMOGLOBIN 0.4 % (0.5-1.5); BG DEOXYHEMOGLOBIN 1.2 % (0.0-5.0); BG FRACTION INSPIRED OXYGEN 40; BG HCO3 ACT 30.6 mmol/L (22.0-26.0); BG METHEMOGLOBIN 0.1 % (0.0-1.5); BG OXYGEN SATURATION 98.8 % (92.0-98.5); BG OXYHEMOGLOBIN 98.3 % (94.0-97.0); BG PCO2 41.7 mmHg (35.0-45.0); BG PH 7.483 (7.350-7.450); BG PO2 136.9 mmHg (75.0-100.0); BG SAMPLE SITE RIGHT BRACHIAL; BG TIDAL VOLUME(mL) 400 mL; BG TOTAL HEMOGLOBIN 12.5 g/dL (12.0-18.0); BG VENT MODE VENT - A/C; BG VENT RATE 12 set
[2018-04-12] MEDS: PANTOPRAZOLE SODIUM 40 MG/VIAL IV SCH (08:45)
[2018-04-12] MEDS: ENOXAPARIN 60MG/0.6ML SYR SUBCUT SCH ×2 (08:46→20:10)
[2018-04-12] MEDS: ACETAMINOPHEN 650MG/20.3ML UDC NG PRN ×2 (09:14→20:08)
[2018-04-12 11:51] LABS: CLARITY URINE TURBID (CLEAR); COLOR URINE DARK YELLOW (YELLOW); KETONES URINE NEGATIVE (NEGATIVE); LEUKOCYTE ESTERASE URINE 2+ (NEGATIVE); NITRITE URINE NEGATIVE (NEGATIVE); OCCULT BLOOD URINE 1+ (NEGATIVE); PH URINE 5.5 (4.5-8.0); PROTEIN URINE TRACE (NEGATIVE)
[2018-04-12] MEDS ORDERED: IOHEXOL-350 100 ML BOTTLE ONE (19:06)
[2018-04-12] MEDS: AMIODARONE HCL 900 MG in DEXT 5% WATER 482 ML IV PRN (19:28)
[2018-04-12] MEDS: LEVOFLOXACIN 500MG PREMIX 100 ML IV SCH (20:10)
[2018-04-12] MEDS: VANCOMYCIN 1 G PREMIX 200 ML IV SCH (20:10)
[2018-04-13] VITALS (91 sets, daily range): BP systolic 89–135; BP diastolic 45–88
[2018-04-13] MEDS: IPRATROPIUM BROMIDE (0.02%) 0.5MG/2.5ML NEB HHN SCH ×4 (00:14→20:27)
[2018-04-13] MEDS: INSULIN LISPRO 100 UNITS/ML SUBCUT SCH ×4 (05:45→23:16)
[2018-04-13 05:53] LABS: BASOPHILS % 0.9 % (0.0-2.0); HEMATOCRIT. 37.9 % (36.0-48.0); HEMOGLOBIN. 12.1 g/dL (12.0-16.0); LYMPHOCYTES % 18.5 % (20.0-50.0); MEAN CORPUSCULAR HEMOGLOBIN 31.1 pg (28.0-32.0); MEAN CORPUSCULAR VOLUME 97.2 fL (81.0-99.0); MEAN PLATELET VOLUME 9.7 fl (7.4-10.4); MONOCYTES % 9.9 % (2.0-8.0); NEUTROPHILS % 70.7 % (40.0-76.0); PLATELET 250 x1000/uL (130-400); RED BLOOD CELL COUNT 3.89 mill/uL (4.2-5.4); RED CELL DISTRIBUTION WIDTH 16.2 % (11.6-14.6)
[2018-04-13 06:00] LABS: CHLORIDE 104 mEq/L (98-107)
[2018-04-13] MEDS: BLOOD SUGAR DIAGNOSTIC STRIP TEST SCH ×4 (06:36→23:16)
[2018-04-13] MEDS: METRONIDAZOLE 500 MG PREMIX 100 ML IV SCH ×3 (06:37→23:16)
[2018-04-13] MEDS: ACETYLCYSTEINE 100MG/ML 10% VIAL 4ML INH SCH ×3 (08:18→20:26)
[2018-04-13] MEDS: PANTOPRAZOLE SODIUM 40 MG/VIAL IV SCH (08:22)
[2018-04-13] MEDS: ENOXAPARIN 60MG/0.6ML SYR SUBCUT SCH ×2 (10:03→20:56)
[2018-04-13] MEDS: VANCOMYCIN 1 G PREMIX 200 ML IV SCH (14:44)
[2018-04-13] MEDS: LORAZEPAM 2MG/ML CPJ IV PRN (17:24)
[2018-04-13] MEDS: LEVOFLOXACIN 500MG PREMIX 100 ML IV SCH (20:56)
[2018-04-14] VITALS (95 sets, daily range): BP systolic 92–154; BP diastolic 21–94
[2018-04-14] MEDS: IPRATROPIUM BROMIDE (0.02%) 0.5MG/2.5ML NEB HHN SCH ×4 (01:47→19:42)
[2018-04-14] MEDS: AMIODARONE HCL 900 MG in DEXT 5% WATER 482 ML IV PRN (04:04)
[2018-04-14] MEDS: BLOOD SUGAR DIAGNOSTIC STRIP TEST SCH ×2 (05:20→11:50)
[2018-04-14] MEDS: INSULIN LISPRO 100 UNITS/ML SUBCUT SCH ×2 (05:20→12:09)
[2018-04-14 06:01] LABS: BASOPHILS % 0.5 % (0.0-2.0); HEMATOCRIT. 34.2 % (36.0-48.0); HEMOGLOBIN. 10.9 g/dL (12.0-16.0); LYMPHOCYTES % 22.4 % (20.0-50.0); MEAN CORPUSCULAR VOLUME 97.3 fL (81.0-99.0); MEAN PLATELET VOLUME 9.8 fl (7.4-10.4); MONOCYTES % 7.7 % (2.0-8.0); NEUTROPHILS % 69.4 % (40.0-76.0); PLATELET 288 x1000/uL (130-400); RED BLOOD CELL COUNT 3.51 mill/uL (4.2-5.4); RED CELL DISTRIBUTION WIDTH 15.7 % (11.6-14.6)
[2018-04-14 06:19] LABS: CHLORIDE 103 mEq/L (98-107)
[2018-04-14] MEDS: METRONIDAZOLE 500 MG PREMIX 100 ML IV SCH ×3 (06:44→23:22)
[2018-04-14 08:05] LABS: BG BASE EXCESS 5.7 mmol/L (-2.0-2.0); BG CARBOXYHEMOGLOBIN 0.3 % (0.5-1.5); BG DEOXYHEMOGLOBIN 1.1 % (0.0-5.0); BG METHEMOGLOBIN 0.2 % (0.0-1.5); BG OXYGEN SATURATION 98.9 % (92.0-98.5); BG OXYHEMOGLOBIN 98.4 % (94.0-97.0); BG PCO2 37.5 mmHg (35.0-45.0); BG PH 7.506 (7.350-7.450); BG PO2 142.3 mmHg (75.0-100.0); BG SAMPLE SITE LEFT BRACHIAL; BG TIDAL VOLUME(mL) 400 mL; BG TOTAL HEMOGLOBIN 11.5 g/dL (12.0-18.0); BG VENT MODE VENT - A/C; BG VENT RATE 12 set
[2018-04-14] MEDS: ACETYLCYSTEINE 100MG/ML 10% VIAL 4ML INH SCH ×2 (08:19→15:00)
[2018-04-14] MEDS: PANTOPRAZOLE SODIUM 40 MG/VIAL IV SCH (08:57)
[2018-04-14] MEDS: ENOXAPARIN 60MG/0.6ML SYR SUBCUT SCH ×2 (08:57→20:57)
[2018-04-14] MEDS: VANCOMYCIN 1 G PREMIX 200 ML IV SCH (08:57)
[2018-04-14] MEDS ORDERED: DIGOXIN 500MCG/2ML AMP IV SCH (11:45)
[2018-04-14] MEDS: LORAZEPAM 2MG/ML CPJ IV PRN (12:08)
[2018-04-14] MEDS: ACETAMINOPHEN 650MG/20.3ML UDC NG PRN (14:50)
[2018-04-14 16:06] LABS: BG BASE EXCESS 3.7 mmol/L (-2.0-2.0); BG CARBOXYHEMOGLOBIN 0.3 % (0.5-1.5); BG DEOXYHEMOGLOBIN 1.2 % (0.0-5.0); BG HCO3 ACT 28.1 mmol/L (22.0-26.0); BG METHEMOGLOBIN 0.2 % (0.0-1.5); BG OXYGEN SATURATION 98.8 % (92.0-98.5); BG OXYHEMOGLOBIN 98.3 % (94.0-97.0); BG PCO2 41.8 mmHg (35.0-45.0); BG PH 7.446 (7.350-7.450); BG PO2 144.5 mmHg (75.0-100.0); BG SAMPLE SITE LEFT BRACHIAL; BG TIDAL VOLUME(mL) 400 mL; BG TOTAL HEMOGLOBIN 11.3 g/dL (12.0-18.0); BG VENT MODE VENT - SIMV; BG VENT RATE 10 set
[2018-04-14] MEDS: LEVOFLOXACIN 500MG PREMIX 100 ML IV SCH (21:05)
[2018-04-15] VITALS (79 sets, daily range): BP systolic 89–147; BP diastolic 42–103
[2018-04-15] MEDS: ACETYLCYSTEINE 100MG/ML 10% VIAL 4ML INH SCH ×3 (01:24→13:33)
[2018-04-15] MEDS: IPRATROPIUM BROMIDE (0.02%) 0.5MG/2.5ML NEB HHN SCH ×4 (01:24→20:59)
[2018-04-15] MEDS: VANCOMYCIN 1 G PREMIX 200 ML IV SCH ×2 (03:07→21:42)
[2018-04-15] MEDS: BLOOD SUGAR DIAGNOSTIC STRIP TEST SCH ×4 (08:17→23:46)
[2018-04-15] MEDS: PANTOPRAZOLE SODIUM 40 MG/VIAL IV SCH (08:23)
[2018-04-15] MEDS: METRONIDAZOLE 500 MG PREMIX 100 ML IV SCH ×3 (08:23→23:50)
[2018-04-15] MEDS: ENOXAPARIN 60MG/0.6ML SYR SUBCUT SCH (08:24)
[2018-04-15] MEDS: INSULIN LISPRO 100 UNITS/ML SUBCUT SCH ×4 (08:24→23:45)
[2018-04-15 08:47] LABS: BG BASE EXCESS 6.4 mmol/L (-2.0-2.0); BG FRACTION INSPIRED OXYGEN 40; BG HCO3 ACT 29.9 mmol/L (22.0-26.0); BG PH 7.503 (7.350-7.450); BG PO2 185.1 mmHg (75.0-100.0); BG SAMPLE SITE LEFT BRACHIAL; BG TIDAL VOLUME(mL) 400 mL; BG VENT MODE VENT - A/C; BG VENT RATE 12 set
[2018-04-15] MEDS: LORAZEPAM 2MG/ML CPJ IV PRN (14:36)
[2018-04-15 16:27] LABS: BASOPHILS % 0.1 % (0.0-2.0); EOSINOPHILS % 0.2 % (0.0-5.0); HEMOGLOBIN. 9.7 g/dL (12.0-16.0); INR 1.1; MEAN CORPUSCULAR HEMOGLOBIN 31.4 pg (28.0-32.0); MEAN CORPUSCULAR VOLUME 96.7 fL (81.0-99.0); MEAN PLATELET VOLUME 9.6 fl (7.4-10.4); MONOCYTES % 6.2 % (2.0-8.0); NEUTROPHILS % 81.5 % (40.0-76.0); PARTIAL THROMBOPLASTIN TIME 34.3 sec (23.4-31.0); PLATELET 260 x1000/uL (130-400); PROTHROMBIN TIME 11.3 sec (9.1-11.1); RED CELL DISTRIBUTION WIDTH 15.9 % (11.6-14.6)
[2018-04-15 16:30] LABS: AMMONIA 12 uMol/L (<32); CHLORIDE 104 mEq/L (98-107)
[2018-04-15 16:42] LABS: TOTAL IRON BINDING CAPACITY 248 ug/dL (250-450)
[2018-04-15 17:24] LABS: HEPATITIS B SURFACE ANTIGEN NEGATIVE
[2018-04-15 17:43] LABS: VITAMIN B12 SERUM 684 pg/mL (211-911)
[2018-04-15 17:50] LABS: FERRITIN 346 ng/mL (10-291)
[2018-04-15 17:52] LABS: HEPATITIS B CORE AB IGM NEGATIVE
[2018-04-15 17:53] LABS: FOLIC ACID (FOLATE) SERUM > 20.00 ng/mL (>5.38); HEPATITIS A AB IGM NEGATIVE (NEGATIVE)
[2018-04-15] MEDS: ACETAMINOPHEN 650MG/20.3ML UDC NG PRN (17:59)
[2018-04-15] MEDS ORDERED: AMIODARONE HCL 200 MG TABLET PO NR (18:37)
[2018-04-15] MEDS: LEVOFLOXACIN 500MG PREMIX 100 ML IV SCH (20:18)
[2018-04-15] MEDS: DEXT 5%/0.45% NACL 1000ML 1,000 ML IV SCH (23:50)
[2018-04-16] VITALS (78 sets, daily range): BP systolic 76–122; BP diastolic 38–76
[2018-04-16] MEDS: IPRATROPIUM BROMIDE (0.02%) 0.5MG/2.5ML NEB HHN SCH ×4 (02:11→19:50)
[2018-04-16] MEDS: INSULIN LISPRO 100 UNITS/ML SUBCUT SCH ×4 (05:45→23:43)
[2018-04-16] MEDS: BLOOD SUGAR DIAGNOSTIC STRIP TEST SCH ×4 (05:55→23:43)
[2018-04-16 06:08] LABS: BASOPHILS % 0.5 % (0.0-2.0); EOSINOPHILS % 0.8 % (0.0-5.0); HEMATOCRIT. 29.6 % (36.0-48.0); HEMOGLOBIN. 9.8 g/dL (12.0-16.0); LYMPHOCYTES % 13.4 % (20.0-50.0); MEAN CORPUSCULAR HEMOGLOBIN 32.4 pg (28.0-32.0); MEAN CORPUSCULAR VOLUME 98.1 fL (81.0-99.0); MONOCYTES % 6.1 % (2.0-8.0); NEUTROPHILS % 79.2 % (40.0-76.0); PLATELET 239 x1000/uL (130-400); RED BLOOD CELL COUNT 3.02 mill/uL (4.2-5.4); RED CELL DISTRIBUTION WIDTH 15.7 % (11.6-14.6)
[2018-04-16 06:42] LABS: INR 1.1; PARTIAL THROMBOPLASTIN TIME 30.2 sec (23.4-31.0); PROTHROMBIN TIME 11.2 sec (9.1-11.1)
[2018-04-16 06:48] LABS: CHLORIDE 104 mEq/L (98-107)
[2018-04-16] MEDS: METRONIDAZOLE 500 MG PREMIX 100 ML IV SCH ×3 (07:40→23:42)
[2018-04-16] MEDS: PANTOPRAZOLE SODIUM 40 MG/VIAL IV SCH (09:32)
[2018-04-16] MEDS: AMIODARONE HCL 200 MG TABLET PO SCH (09:50)
[2018-04-16] MEDS: DEXT 5%/0.45% NACL 1000ML 1,000 ML IV SCH (13:42)
[2018-04-16] MEDS: LEVOFLOXACIN 500MG PREMIX 100 ML IV SCH (20:43)
[2018-04-16] MEDS: LORAZEPAM 2MG/ML CPJ IV PRN (20:44)
[2018-04-17] VITALS (83 sets, daily range): BP systolic 51–164; BP diastolic 40–94
[2018-04-17] MEDS: IPRATROPIUM BROMIDE (0.02%) 0.5MG/2.5ML NEB HHN SCH ×4 (02:03→20:18)
[2018-04-17] MEDS: DEXT 5%/0.45% NACL 1000ML 1,000 ML IV SCH ×2 (03:04→15:15)
[2018-04-17] MEDS: INSULIN LISPRO 100 UNITS/ML SUBCUT SCH ×4 (05:45→23:45)
[2018-04-17 05:59] LABS: BASOPHILS % 0.2 % (0.0-2.0); EOSINOPHILS % 0.9 % (0.0-5.0); HEMATOCRIT. 32.2 % (36.0-48.0); HEMOGLOBIN. 10.4 g/dL (12.0-16.0); LYMPHOCYTES % 11.1 % (20.0-50.0); MEAN CORPUSCULAR HEMOGLOBIN 31.6 pg (28.0-32.0); MEAN CORPUSCULAR VOLUME 97.9 fL (81.0-99.0); MEAN PLATELET VOLUME 10.1 fl (7.4-10.4); MONOCYTES % 5.9 % (2.0-8.0); NEUTROPHILS % 81.9 % (40.0-76.0); PLATELET 256 x1000/uL (130-400); RED BLOOD CELL COUNT 3.29 mill/uL (4.2-5.4)
[2018-04-17 06:02] LABS: INR 1.1; PARTIAL THROMBOPLASTIN TIME 30.1 sec (23.4-31.0); PROTHROMBIN TIME 11.1 sec (9.1-11.1)
[2018-04-17] MEDS: BLOOD SUGAR DIAGNOSTIC STRIP TEST SCH ×4 (06:35→23:45)
[2018-04-17 06:57] LABS: CHLORIDE 102 mEq/L (98-107)
[2018-04-17] MEDS: METRONIDAZOLE 500 MG PREMIX 100 ML IV SCH ×2 (07:26→15:07)
[2018-04-17] MEDS: AMIODARONE HCL 200 MG TABLET PO SCH (09:00)
[2018-04-17] MEDS ORDERED: FENTANYL CITRATE/PF 50MCG/ML 2ML VIAL ONE (10:05)
[2018-04-17] MEDS ORDERED: MIDAZOLAM HCL 5 MG/5 ML VIAL ONE (10:05)
[2018-04-17] MEDS ORDERED: MIDAZOLAM HCL 2 MG/2 ML VIAL IV PRN (10:59)
[2018-04-17] MEDS ORDERED: SODIUM CHLORIDE 0.9% 10ML VIAL ONE (12:42)
[2018-04-17] MEDS: PANTOPRAZOLE SODIUM 40 MG/VIAL IV SCH (13:43)
[2018-04-17] MEDS ORDERED: ROCURONIUM BROMIDE 10MG/ML VIAL 5ML IV ONE ×3 (15:52→17:21)
[2018-04-17] MEDS ORDERED: PHENYLEPHRINE HCL 10 MG/ML 1ML (IV VIAL) IV ONE (15:53)
[2018-04-17] MEDS ORDERED: MIDAZOLAM HCL 2 MG/2 ML VIAL ONE (15:55)
[2018-04-17] MEDS: LEVOFLOXACIN 500MG PREMIX 100 ML IV SCH (22:33)
[2018-04-18] VITALS (92 sets, daily range): BP systolic 70–130; BP diastolic 29–74
[2018-04-18] MEDS: METRONIDAZOLE 500 MG PREMIX 100 ML IV SCH (01:44)
[2018-04-18] MEDS: IPRATROPIUM BROMIDE (0.02%) 0.5MG/2.5ML NEB HHN SCH ×4 (02:10→20:27)
[2018-04-18] MEDS: BLOOD SUGAR DIAGNOSTIC STRIP TEST SCH ×4 (05:45→23:45)
[2018-04-18] MEDS: INSULIN LISPRO 100 UNITS/ML SUBCUT SCH ×4 (05:45→23:45)
[2018-04-18 05:58] LABS: BASOPHILS % 0.1 % (0.0-2.0); EOSINOPHILS % 0.1 % (0.0-5.0); HEMATOCRIT. 30.9 % (36.0-48.0); HEMOGLOBIN. 9.9 g/dL (12.0-16.0); LYMPHOCYTES % 7.1 % (20.0-50.0); MEAN CORPUSCULAR HEMOGLOBIN 31.3 pg (28.0-32.0); MEAN CORPUSCULAR VOLUME 97.7 fL (81.0-99.0); MEAN PLATELET VOLUME 9.5 fl (7.4-10.4); MONOCYTES % 7.7 % (2.0-8.0); PLATELET 298 x1000/uL (130-400); RED BLOOD CELL COUNT 3.16 mill/uL (4.2-5.4)
[2018-04-18 06:05] LABS: CHLORIDE 101 mEq/L (98-107)
[2018-04-18] MEDS: DEXT 5%/0.45% NACL 1000ML 1,000 ML IV SCH (08:14)
[2018-04-18] MEDS: PANTOPRAZOLE SODIUM 40 MG/VIAL IV SCH (08:17)
[2018-04-18] MEDS: AMIODARONE HCL 200 MG TABLET PO SCH (08:17)
[2018-04-19] VITALS (55 sets, daily range): BP systolic 93–135; BP diastolic 44–78
[2018-04-19] MEDS: IPRATROPIUM BROMIDE (0.02%) 0.5MG/2.5ML NEB HHN SCH ×4 (02:06→20:40)
[2018-04-19] MEDS: INSULIN LISPRO 100 UNITS/ML SUBCUT SCH ×5 (05:45→23:45)
[2018-04-19] MEDS: BLOOD SUGAR DIAGNOSTIC STRIP TEST SCH ×4 (05:45→23:55)
[2018-04-19 06:33] LABS: BASOPHILS % 0.2 % (0.0-2.0); EOSINOPHILS % 0.7 % (0.0-5.0); HEMATOCRIT. 27.4 % (36.0-48.0); HEMOGLOBIN. 9.1 g/dL (12.0-16.0); LYMPHOCYTES % 10.4 % (20.0-50.0); MEAN CORPUSCULAR HEMOGLOBIN 31.6 pg (28.0-32.0); MEAN CORPUSCULAR VOLUME 95.7 fL (81.0-99.0); MEAN PLATELET VOLUME 8.9 fl (7.4-10.4); MONOCYTES % 7.3 % (2.0-8.0); NEUTROPHILS % 81.4 % (40.0-76.0); PLATELET 286 x1000/uL (130-400); RED BLOOD CELL COUNT 2.87 mill/uL (4.2-5.4); RED CELL DISTRIBUTION WIDTH 16.5 % (11.6-14.6)
[2018-04-19 06:47] LABS: CHLORIDE 103 mEq/L (98-107)
[2018-04-19 06:51] LABS: PHOSPHORUS 1.8 mg/dL (2.5-4.9)
[2018-04-19] MEDS: ACETAMINOPHEN 650MG/20.3ML UDC NG PRN (07:11)
[2018-04-19] MEDS: PANTOPRAZOLE SODIUM 40 MG/VIAL IV SCH (08:47)
[2018-04-19] MEDS: AMIODARONE HCL 200 MG TABLET PO SCH (08:47)
[2018-04-19] MEDS ORDERED: POTASSIUM PHOS,M-BASIC-D-BASIC 15 MMOL in DEXT 5% WATER 245 ML IV SCH (09:00)
[2018-04-19] MEDS: ENOXAPARIN 60MG/0.6ML SYR SUBCUT SCH (20:41)
[2018-04-20] VITALS (12 sets, daily range): BP systolic 92–111; BP diastolic 54–80
[2018-04-20] MEDS: IPRATROPIUM BROMIDE (0.02%) 0.5MG/2.5ML NEB HHN SCH ×4 (01:59→19:50)
[2018-04-20] MEDS: BLOOD SUGAR DIAGNOSTIC STRIP TEST SCH ×4 (07:20→23:24)
[2018-04-20] MEDS: INSULIN LISPRO 100 UNITS/ML SUBCUT SCH ×4 (07:20→23:24)
[2018-04-20 07:50] LABS: HEMATOCRIT 28.2 % (36.0-48.0); HEMOGLOBIN 9.3 g/dL (12.0-16.0); MEAN CORPUSCULAR HEMOGLOBIN 31.8 pg (28.0-32.0); MEAN CORPUSCULAR VOLUME 96.9 fL (81.0-99.0); PLATELET 312 x1000/uL (130-400); RED BLOOD CELL COUNT 2.91 mill/uL (4.2-5.4); RED CELL DISTRIBUTION WIDTH 16.7 % (11.6-14.6)
[2018-04-20 08:43] LABS: CHLORIDE 104 mEq/L (98-107)
[2018-04-20] MEDS: PANTOPRAZOLE SODIUM 40 MG/VIAL IV SCH (08:50)
[2018-04-20] MEDS: AMIODARONE HCL 200 MG TABLET PO SCH (08:51)
[2018-04-20] MEDS: ENOXAPARIN 60MG/0.6ML SYR SUBCUT SCH ×2 (08:52→21:31)
[2018-04-20] MEDS: ACETAMINOPHEN 650MG/20.3ML UDC NG PRN (08:52)
[2018-04-20] MEDS: MORPHINE SULFATE 4 MG/ML CPJ (NOT FOR IM USE) IV PRN (15:05)
[2018-04-21] VITALS (11 sets, daily range): BP systolic 97–140; BP diastolic 48–83
[2018-04-21] MEDS: IPRATROPIUM BROMIDE (0.02%) 0.5MG/2.5ML NEB HHN SCH ×4 (02:07→20:57)
[2018-04-21] MEDS: BLOOD SUGAR DIAGNOSTIC STRIP TEST SCH ×4 (05:11→22:24)
[2018-04-21] MEDS: INSULIN LISPRO 100 UNITS/ML SUBCUT SCH ×4 (05:11→22:25)
[2018-04-21] MEDS: PANTOPRAZOLE SODIUM 40 MG/VIAL IV SCH (09:47)
[2018-04-21] MEDS: AMIODARONE HCL 200 MG TABLET PO SCH (09:47)
[2018-04-21] MEDS: ENOXAPARIN 60MG/0.6ML SYR SUBCUT SCH ×2 (09:48→21:51)
[2018-04-21] MEDS: MORPHINE SULFATE 4 MG/ML CPJ (NOT FOR IM USE) IV PRN ×2 (14:08→22:43)
[2018-04-22] VITALS (9 sets, daily range): BP systolic 95–137; BP diastolic 53–83
[2018-04-22] MEDS: IPRATROPIUM BROMIDE (0.02%) 0.5MG/2.5ML NEB HHN SCH ×4 (02:40→21:12)
[2018-04-22] MEDS: BLOOD SUGAR DIAGNOSTIC STRIP TEST SCH ×4 (05:45→23:06)
[2018-04-22] MEDS: INSULIN LISPRO 100 UNITS/ML SUBCUT SCH ×4 (05:45→23:06)
[2018-04-22 06:09] LABS: HEMATOCRIT 26.8 % (36.0-48.0); HEMOGLOBIN 8.9 g/dL (12.0-16.0); MEAN CORPUSCULAR HEMOGLOBIN 32.4 pg (28.0-32.0); MEAN CORPUSCULAR VOLUME 97.1 fL (81.0-99.0); PLATELET 301 x1000/uL (130-400); RED BLOOD CELL COUNT 2.76 mill/uL (4.2-5.4); RED CELL DISTRIBUTION WIDTH 17.2 % (11.6-14.6)
[2018-04-22 06:39] LABS: CHLORIDE 107 mEq/L (98-107)
[2018-04-22] MEDS: ENOXAPARIN 60MG/0.6ML SYR SUBCUT SCH ×2 (08:50→20:51)
[2018-04-22] MEDS: AMIODARONE HCL 200 MG TABLET PO SCH (08:50)
[2018-04-22] MEDS: PANTOPRAZOLE SODIUM 40 MG/VIAL IV SCH (08:50)
[2018-04-22] MEDS: MORPHINE SULFATE 4 MG/ML CPJ (NOT FOR IM USE) IV PRN ×2 (09:04→15:14)
[2018-04-23] VITALS (12 sets, daily range): BP systolic 90–123; BP diastolic 56–96
[2018-04-23] MEDS: IPRATROPIUM BROMIDE (0.02%) 0.5MG/2.5ML NEB HHN SCH ×4 (00:54→20:19)
[2018-04-23] MEDS: MORPHINE SULFATE 4 MG/ML CPJ (NOT FOR IM USE) IV PRN ×4 (03:04→20:50)
[2018-04-23] MEDS: INSULIN LISPRO 100 UNITS/ML SUBCUT SCH ×4 (05:45→23:45)
[2018-04-23] MEDS: BLOOD SUGAR DIAGNOSTIC STRIP TEST SCH ×3 (05:49→17:06)
[2018-04-23] MEDS: PANTOPRAZOLE SODIUM 40 MG/VIAL IV SCH (08:34)
[2018-04-23] MEDS: ENOXAPARIN 60MG/0.6ML SYR SUBCUT SCH ×2 (08:35→20:50)
[2018-04-23] MEDS: AMIODARONE HCL 200 MG TABLET PO SCH (08:35)
[2018-04-24] VITALS (11 sets, daily range): BP systolic 85–126; BP diastolic 53–93
[2018-04-24] MEDS: BLOOD SUGAR DIAGNOSTIC STRIP TEST SCH ×4 (00:10→17:13)
[2018-04-24] MEDS: MORPHINE SULFATE 4 MG/ML CPJ (NOT FOR IM USE) IV PRN ×4 (01:55→17:16)
[2018-04-24] MEDS: IPRATROPIUM BROMIDE (0.02%) 0.5MG/2.5ML NEB HHN SCH ×4 (02:06→19:57)
[2018-04-24] MEDS: INSULIN LISPRO 100 UNITS/ML SUBCUT SCH ×3 (05:45→17:13)
[2018-04-24] MEDS: PANTOPRAZOLE SODIUM 40 MG/VIAL IV SCH (08:19)
[2018-04-24] MEDS: ENOXAPARIN 60MG/0.6ML SYR SUBCUT SCH ×2 (08:19→20:42)
[2018-04-24] MEDS: AMIODARONE HCL 200 MG TABLET PO SCH (08:24)
[2018-04-24 10:12] LABS: HEMATOCRIT 29.3 % (36.0-48.0); HEMOGLOBIN 9.5 g/dL (12.0-16.0); MEAN CORPUSCULAR HEMOGLOBIN 32.2 pg (28.0-32.0); MEAN CORPUSCULAR VOLUME 99.3 fL (81.0-99.0); PLATELET 341 x1000/uL (130-400); RED BLOOD CELL COUNT 2.95 mill/uL (4.2-5.4); RED CELL DISTRIBUTION WIDTH 17.8 % (11.6-14.6)
[2018-04-24 10:45] LABS: CHLORIDE 108 mEq/L (98-107)
[2018-04-24] MEDS ORDERED: QUETIAPINE FUMARATE 100MG TABLET PO SCH ×2 (17:00)
[2018-04-25] MEDS ORDERED: RISPERIDONE 0.5MG TABLET PO SCH (09:00)
== END 2018-04-24 21:06 | DRG 3 ==
LOC: ER 18:44 → ENRESERV 20:06 → MICUSO 20:34 → EDBEDREQ 20:48 → EDBEDREQTM 20:48 → 5EST 04-19 13:45
PROVIDERS: ADMIT Internal Medicine; ATTEND Internal Medicine
PROC: 5A1955Z Respiratory Ventilation, Greater than 96 Consecutive Hours (ICD-10-PCS; principal; 2018-04-04)
PROC: 0BH17EZ Insertion of Endotracheal Airway into Trachea, Via Natural or Artificial Opening (ICD-10-PCS; 2018-04-04)
PROC: 05H533Z Insertion of Infusion Device into Right Subclavian Vein, Percutaneous Approach (ICD-10-PCS; 2018-04-05)
PROC: B546ZZA Ultrasonography of Right Subclavian Vein, Guidance (ICD-10-PCS; 2018-04-05)
PROC: 0BH17EZ Insertion of Endotracheal Airway into Trachea, Via Natural or Artificial Opening (ICD-10-PCS; 2018-04-10)
PROC: 5A1955Z Respiratory Ventilation, Greater than 96 Consecutive Hours (ICD-10-PCS; 2018-04-10)
PROC: 0B110F4 Bypass Trachea to Cutaneous with Tracheostomy Device, Open Approach (ICD-10-PCS; 2018-04-17)
PROC: 0GBJ0ZZ Excision of Thyroid Gland Isthmus, Open Approach (ICD-10-PCS; 2018-04-17)
PROC: 0DH63UZ Insertion of Feeding Device into Stomach, Percutaneous Approach (ICD-10-PCS; 2018-04-17)
DX: A41.9 Sepsis, unspecified organism (principal); I50.43 Acute on chronic combined systolic (congestive) and diastolic (congestive) heart failure; J69.0 Pneumonitis due to inhalation of food and vomit; J96.01 Acute respiratory failure with hypoxia; E43 Unspecified severe protein-calorie malnutrition; J15.212 Pneumonia due to Methicillin resistant Staphylococcus aureus; J96.21 Acute and chronic respiratory failure with hypoxia; N39.0 Urinary tract infection, site not specified; E87.2 Acidosis; G93.40 Encephalopathy, unspecified; I42.9 Cardiomyopathy, unspecified; J44.0 Chronic obstructive pulmonary disease with (acute) lower respiratory infection; J44.1 Chronic obstructive pulmonary disease with (acute) exacerbation; E83.39 Other disorders of phosphorus metabolism; B19.20 Unspecified viral hepatitis C without hepatic coma; D64.9 Anemia, unspecified; E11.51 Type 2 diabetes mellitus with diabetic peripheral angiopathy without gangrene; E83.42 Hypomagnesemia; E87.6 Hypokalemia; F20.9 Schizophrenia, unspecified; G93.89 Other specified disorders of brain; I08.1 Rheumatic disorders of both mitral and tricuspid valves; I11.0 Hypertensive heart disease with heart failure; I27.20 Pulmonary hypertension, unspecified; I48.2 Chronic atrial fibrillation; I83.90 Asymptomatic varicose veins of unspecified lower extremity; K21.9 Gastro-esophageal reflux disease without esophagitis; K76.89 Other specified diseases of liver; L89.90 Pressure ulcer of unspecified site, unspecified stage; S80.211A Abrasion, right knee, initial encounter; N20.0 Calculus of kidney; R13.10 Dysphagia, unspecified; S61.411A Laceration without foreign body of right hand, initial encounter; X58.XXXA Exposure to other specified factors, initial encounter; Z68.26 Body mass index [BMI] 26.0-26.9, adult; Y93.89 Activity, other specified; Y92.89 Other specified places as the place of occurrence of the external cause; Y99.8 Other external cause status; Z78.1 Physical restraint status; Z86.711 Personal history of pulmonary embolism; Z86.79 Personal history of other diseases of the circulatory system; Z88.0 Allergy status to penicillin; Z79.2 Long term (current) use of antibiotics; Z79.899 Other long term (current) drug therapy; Z79.82 Long term (current) use of aspirin
CPT/HCPCS: 31500; 36415; 36569; 36600; 70551; 71045; 71275; 74018; 76700; 76937; 80048; 80076; 80202; 82140; 82375; 82607; 82728; 82746; 82805; 82962; 83540; 83550; 83605; 83735; 83880; 84100; 84134; 84145; 84484; 85027; 86705; 86709; 86803; 87070; 87077; 87340; 87804; 90686; 90732; 92610; 93005; 93306; 93970; 93971; 94002; 94003; 94640; 94667; 96365; 96367; 96375; 97163; 97164; 99291; A4216; A6261; C1725; C9113; J0282; J1160; J1642; J1650; J1815; J1940; J1956; J2060; J2250; J2270; J2370; J3010; J3370; J3475; J3480; J3490; J7030; J7040; J7050; J7060; J7131; J7608; J7620; J7626; Q9967; A4315